=== PATIENT | male | born 1990 | race Hispanic/Latino ===

== ENCOUNTER 2018-07-16 21:30 | Observation (INO) | payer OTHER ==
[2018-07-16 21:36] VITALS: BMI 32.5
--- NOTE | 2018-07-16 22:36 | ED PDOC ---
Arrival/HPI - General Chief Complaint: Chest Pain Time Seen by Provider: 07/16/18 22:12 Historian: Patient - History of Present Illness Narrative History of Present Illness (Text): 07/16/18 22:32 28 m with hx asthma presents to the emergency department with chief complaint of center retrosternal chest pain, described as pressure, onset approx 10 days ago, no exacerbating or relieving factors, no prior hx of similiar symptoms. Patient also reports secondary complaint of left sided arm and leg numbness, ongoing for several days, constant feeling, patient also reports subjective weakness in the left arm and leg but not to the point of disability. Patient denies dyspnea, no headache, no facial weakness, no visual disturbance, no speech disturbance. Patient reports recent exacerbations of acid reflux for which he has been taking lots of antacid. Past Medical History - Provider Review Nursing Documentation Reviewed: Yes - Pulmonary Hx Asthma: Yes - Psychiatric Hx Substance Use: No - Anesthesia Hx Anesthesia: No Hx Anesthesia Reactions: No Hx Malignant Hyperthermia: No Family/Social History - Physician Review Nursing Documentation Reviewed: Yes Family/Social History: No Known Family HX Smoking Status: Light Smoker < 10 Cigarettes Daily Hx Alcohol Use: Yes Frequency of alcohol use: Socially Hx Substance Use: No Allergies/Home Meds Allergies/Adverse Reactions: Allergies No Known Allergies Allergy (Verified 07/16/18 21:36) Review of Systems - Physician Review All systems were reviewed & negative as marked: Yes - Review of Systems Eyes: absent: Vision Changes Cardiovascular: Chest Pain (pressure-like center retrosternal chest pain). absent: COLON Neurological: Other (left-sided arm and left leg numbness; subjective weakness in the left arm/leg; denies any facial weakness). absent: Headache, Speech Changes Physical Exam - Physical Exam Narrative Physical Exam (Text): Gen: VS reviewed, alert, well developed, well nourished, nontoxic, mild distress. ENT: normal pharynx. Eye: EOMI, PERRL. Neck: no JVD, supple, no adenopathy. CV: regular rate, regular rhythm, no rubs, no murmur, no gallops, S1, S2, pulses equal and strong. Pulm: no distress, clear to auscultation, no wheeze, no rhonchi, breath sounds equal, no rales. Abd: soft, nontender, no guarding, no rebound, no rigidity, normal bowel sounds. Ext: no edema. Skin: good color, no rash, no cyanosis. Psych: responds appropriately to questions, normal affect. Neuro: oriented x 3, CN2-12 intact grossly, motor intact, sensation intact, motor strength 5/5 however reports subjective weakness to left arm and leg, diminished sensation in left entire arm, left leg, left chest and left abdominal wall. Vital Signs Reviewed: Yes Vital Signs Temp Pulse Pulse Resp BP Pulse Ox 07/16/18 21:52 100 H 07/16/18 21:47 97.8 F 100 H 18 126/78 97 Temperature: Afebrile Blood Pressure: Normal Pulse: Regular Respiratory Rate: Normal Appearance: Positive for: Well-Appearing, Non-Toxic, Comfortable Pain Distress: None Mental Status: Positive for: Alert and Oriented X 3 Medical Decision Making ED Course and Treatment: 07/16/18 22:36 Impression: Patient seen for chest pain and left sided body numbness. will get CT of the head to rule out overt intracranial lesion. Will get CT dissection study as the patient is having chest pain with neurologic complaint. Plan: -- EKG -- Angiography Disection CT -- Labs -- Reassess and disposition Progress Notes: 07/17/18 04:[address] valentine to the hospitalist service. patient to be be admitted with the concern for diffuse paresthesias. - RAD Interpretation Narrative RAD Interpretations (Text): 07/17/2018 03:23 Chest CTA IMPRESSION: No evidence of acute abdominal or pelvic pathology. Dictator: Jeffrey Castro MD - EKG Interpretation EKG Interpretation (Text): 07/16/18 22:59 2142: sinus tach at 102 bpm, nml qrs, nml axis, no acute sttw abn Interpreted by ED Physician: Yes Disposition/Present on Arrival - Present on Arrival Any Indicators Present on Arrival: No History of DVT/PE: No History of Uncontrolled Diabetes: No Urinary Catheter: No History of Decub. Ulcer: No History Surgical Site Infection Following: None - Disposition Have Diagnosis and Disposition been Completed?: Yes Diagnosis: Chest pain, Paresthesia Disposition: HOSPITALIZED Disposition Time: 04:47 Patient Plan: Observation Condition: STABLE Discharge Instructions (ExitCare): Chest Pain (ED) Forms: [employer] (Kyrgyz)
[2018-07-16 23:30] LABS: INR 1.03; PARTIAL THROMBOPLASTIN TIME 33.9 Seconds (25.1-36.5); PROTHROMBIN TIME 11.7 SECONDS (9.4-12.5)
[2018-07-16 23:31] LABS: BASO # 0.03 K/mm3 (0.0-2.0); BASO % 0.2 % (0.0-3.0); EOS # 0.3 (0.0-0.7); EOS % 2.4 % (1.5-5.0); GRAN # 8.02 (1.4-6.5); GRAN % 58.9 % (50.0-68.0); HEMOGLOBIN 14.2 g/dL (14.0-18.0); LYMPH # 3.7 (1.2-3.4); LYMPH % 27.3 % (22.0-35.0); MEAN CELL VOLUME 89.4 fl (80.0-105.0); MEAN CORPUSCULAR HEMOGLOBIN 29.5 pg (25.0-35.0); MONO # 1.5 (0.1-0.6); MONO % 11.2 % (1.0-6.0); RBC 4.81 10^6/uL (3.5-6.1); WHITE BLOOD COUNT 13.6 10^3/uL (4.5-11.0)
[2018-07-16 23:41] LABS: ALB/GLOB RATIO 1.5 (1.1-1.8); ALBUMIN 4.5 g/dL (3.0-4.8); ALT/SGPT 43 U/L (7-56); AST/SGOT 35 U/L (17-59); BLOOD UREA NITROGEN 15 mg/dL (7-21); CALCIUM 9.3 mg/dL (8.4-10.5); GFR NON-AFRICAN AMERICAN > 60; HDL CHOLESTEROL 39 mg/dL (29-60)
[2018-07-16 23:53] LABS: LDL CHOLESTEROL 116 mg/dL (0-129)
[2018-07-17 00:02] LABS: TROPONIN I < 0.01 ng/mL
[2018-07-17 00:08] LABS: BARBITURATES, UR NEGATIVE (NEGATIVE); BENZODIAZEPINES, UR NEGATIVE (NEGATIVE); OPIATES, UR NEGATIVE (NEGATIVE); PHENCYCLIDINE, UR NEGATIVE (NEGATIVE)
[2018-07-17] MEDS ORDERED: DiphenhydrAMINE 50 mg/ml Inj IVP STA (01:33)
--- NOTE | 2018-07-17 05:42 | CP.PCM.HP ---
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 Patient reported symptoms have been on going for the past week. He denies any worsening w/ exertion; describes chset pain as located mid/substernal pressure like w/o radiation into the neck. He does report associate dnumbness/tingling of the LUE/ LLE and does report an increase in heart burn type symptoms. Patient reports hes been using alot of tums to help w/ his heart burn. PMD: Denies PMH: Asthma dialy inhaler use PSH: Denies Rx: ProAir Soc: No EtOH/ /4 PPD x 15 years/ No illicit Drug Use Fam Hx: Mother good health, Dad good health All: NKDA Present on Admission - Present on Admission Any Indicators Present on Admission: No Review of Systems - Review of Systems All systems: reviewed and no additional remarkable complaints except Review of Systems: as per HPI Past Patient History - Past Social History Smoking Status: Light Smoker < 10 Cigarettes Daily - PULMONARY Hx Asthma: Yes - PSYCHIATRIC Hx Substance Use: No - SURGICAL HISTORY Hx Surgeries: No - ANESTHESIA Hx Anesthesia: No Hx Anesthesia Reactions: No Hx Malignant Hyperthermia: No Meds Allergies/Adverse Reactions: Allergies Allergy/AdvReac Type Severity Reaction Status Date / Time No Known Allergies Allergy Verified 07/16/18 21:36 Physical Exam - Constitutional Appears: Well, Non-toxic, No Acute Distress - Head Exam Head Exam: ATRAUMATIC, NORMOCEPHALIC - Eye Exam Eye Exam: EOMI, Normal appearance, PERRL - ENT Exam ENT Exam: Mucous Membranes Moist - Respiratory Exam Respiratory Exam: Clear to Auscultation Bilateral, Wheezes, NORMAL BREATHING PATTERN - Cardiovascular Exam Cardiovascular Exam: RRR, +S1, +S2. absent: Tachycardia - GI/Abdominal Exam GI & Abdominal Exam: Normal Bowel Sounds, Soft. absent: Tenderness - Extremities Exam Extremities exam: Positive for: pedal pulses present (2+ BL). Negative for: tenderness - Neurological Exam Neurological exam: Alert, CN II-XII Intact, Oriented x3 Additional comments: RUE and LLE strength 5/5 BL ; no relative weakness All UE and LE sensory gooden intact w/ no deficit Finger to nose test intact; no deficit appreciate - Psychiatric Exam Psychiatric exam: Normal Affect, Normal Mood - Skin Skin Exam: Dry, Intact, Normal Color, Warm Results - Vital Signs Recent Vital Signs: Last Vital Signs Temp 97.7 F 07/17/18 02:20 Pulse 87 07/17/18 02:20 Resp 18 07/17/18 02:20 BP 116/67 07/17/18 02:20 Pulse Ox 96 07/17/18 02:20 - Labs Result Diagrams: 07/16/18 22:59 07/16/18 22:59 Labs: Laboratory Results - last 24 hr 07/16/18 07/16/18 07/16/18 22:59 22:59 22:59 WBC 13.6 H RBC 4.81 Hgb 14.2 Hct 43.0 MCV 89.4 MCH 29.5 MCHC 33.0 RDW 13.0 Plt Count 341 MPV 9.0 Gran % 58.9 Lymph % (Auto) 27.3 [place] % (Auto) 11.2 H Eos % (Auto) 2.4 Baso % (Auto) 0.2 Gran # 8.02 H Lymph # (Auto) 3.7 H [place] # (Auto) 1.5 H Eos # (Auto) 0.3 Baso # (Auto) 0.03 ESR 5 PT 11.7 INR 1.03 APTT 33.9 Sodium 143 Potassium 3.8 Chloride 105 Carbon Dioxide 28 Anion Gap 13 BUN 15 Creatinine 1.1 Est GFR ( Amer) > 60 Est GFR (Non-Af Amer) > 60 Random Glucose 89 Calcium 9.3 Magnesium 2.0 Total Bilirubin 0.4 AST 35 ALT 43 Alkaline Phosphatase 63 Troponin I < 0.01 Total Protein 7.4 Albumin 4.5 Globulin 2.9 Albumin/Globulin Ratio 1.5 Triglycerides 251 H Cholesterol 188 LDL Cholesterol Direct 116 HDL Cholesterol 39 Urine Opiates Screen Urine Methadone Screen Ur Barbiturates Screen Ur Phencyclidine Scrn Ur Amphetamines Screen U Benzodiazepines Scrn U Oth Cocaine Metabols U Cannabinoids Screen 07/16/18 22:59 WBC RBC Hgb Hct MCV MCH MCHC RDW Plt Count MPV Gran % Lymph % (Auto) [place] % (Auto) Eos % (Auto) Baso % (Auto) Gran # Lymph # (Auto) [place] # (Auto) Eos # (Auto) Baso # (Auto) ESR PT INR APTT Sodium Potassium Chloride Carbon Dioxide Anion Gap BUN Creatinine Est GFR ( Amer) Est GFR (Non-Af Amer) Random Glucose Calcium Magnesium Total Bilirubin AST ALT Alkaline Phosphatase Troponin I Total Protein Albumin Globulin Albumin/Globulin Ratio Triglycerides Cholesterol LDL Cholesterol Direct HDL Cholesterol Urine Opiates Screen Negative Urine Methadone Screen Negative Ur Barbiturates Screen Negative Ur Phencyclidine Scrn Negative Ur Amphetamines Screen Negative U Benzodiazepines Scrn Negative U Oth Cocaine Metabols Negative U Cannabinoids Screen Negative Assessment & Plan - Assessment and Plan (Free Text) Assessment: 28M w/ a PMH of asthma presented to [facility] on 07/17 w/ c/o Mid sternal chest pain w/ associated left sided paresthesias. Admitted for ACS r/o and evaluation of parasthesias. Plan: ACS R/o First trop negative; EKG no ischemic change Follow trop; Repeat EKG pending C/w ASA 81 QD A1C pending Lipid panel - hyper triglyceridemia Can Start Lipitor Cardiology Consulted appreciate reccs GERD Protonix 40 IVP QD Paresthesias B12, Folate, Heavy Metal Panel Neurology Consulted, Appreciate reccs Asthma Duonebs Q6/Q4 Patient was seen, examined, Discussed w/ attending Dr. 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 <Mar Marin - Last Filed: 07/17/18 19:58> Results - Vital Signs Recent Vital Signs: Last Vital Signs Temp 98.6 F 07/17/18 17:55 Pulse 94 H 07/17/18 18:00 Resp 20 07/17/18 17:55 BP 120/66 07/17/18 17:55 Pulse Ox 99 07/17/18 08:00 - Labs Result Diagrams: 07/17/18 09:30 07/17/18 09:30 Labs: Laboratory Results - last 24 hr 07/16/18 07/16/18 07/16/18 22:59 22:59 22:59 WBC 13.6 H RBC 4.81 Hgb 14.2 Hct 43.0 MCV 89.4 MCH 29.5 MCHC 33.0 RDW 13.0 Plt Count 341 MPV 9.0 Gran % 58.9 Lymph % (Auto) 27.3 [place] % (Auto) 11.2 H Eos % (Auto) 2.4 Baso % (Auto) 0.2 Gran # 8.02 H Lymph # (Auto) 3.7 H [place] # (Auto) 1.5 H Eos # (Auto) 0.3 Baso # (Auto) 0.03 ESR 5 PT 11.7 INR 1.03 APTT 33.9 Sodium 143 Potassium 3.8 Chloride 105 Carbon Dioxide 28 Anion Gap 13 BUN 15 Creatinine 1.1 Est GFR ( Amer) > 60 Est GFR (Non-Af Amer) > 60 Random Glucose 89 Hemoglobin A1c Calcium 9.3 Magnesium 2.0 Total Bilirubin 0.4 AST 35 ALT 43 Alkaline Phosphatase 63 Troponin I < 0.01 Total Protein 7.4 Albumin 4.5 Globulin 2.9 Albumin/Globulin Ratio 1.5 Triglycerides 251 H Cholesterol 188 LDL Cholesterol Direct 116 HDL Cholesterol 39 Vitamin B12 Folate TSH 3rd Generation Urine Opiates Screen Urine Methadone Screen Ur Barbiturates Screen Ur Phencyclidine Scrn Ur Amphetamines Screen U Benzodiazepines Scrn U Oth Cocaine Metabols U Cannabinoids Screen 07/16/18 07/17/18 07/17/18 22:59 09:30 09:30 WBC RBC Hgb Hct MCV MCH MCHC RDW Plt Count MPV Gran % Lymph % (Auto) [place] % (Auto) Eos % (Auto) Baso % (Auto) Gran # Lymph # (Auto) [place] # (Auto) Eos # (Auto) Baso # (Auto) ESR PT INR APTT Sodium 140 Potassium 4.0 Chloride 107 Carbon Dioxide 27 Anion Gap 10 BUN 15 Creatinine 1.0 Est GFR ( Amer) > 60 Est GFR (Non-Af Amer) > 60 Random Glucose 115 H Hemoglobin A1c 5.7 Calcium 9.0 Magnesium Total Bilirubin 0.3 AST 30 ALT 41 Alkaline Phosphatase 61 Troponin I < 0.01 Total Protein 6.8 Albumin 4.0 Globulin 2.7 Albumin/Globulin Ratio 1.5 Triglycerides Cholesterol LDL Cholesterol Direct HDL Cholesterol Vitamin B12 413 Folate 8.6 TSH 3rd Generation Urine Opiates Screen Negative Urine Methadone Screen Negative Ur Barbiturates Screen Negative Ur Phencyclidine Scrn Negative Ur Amphetamines Screen Negative U Benzodiazepines Scrn Negative U Oth Cocaine Metabols Negative U Cannabinoids Screen Negative 07/17/18 07/17/18 07/17/18 09:30 09:30 15:41 WBC 8.0 D RBC 4.48 Hgb 13.7 L Hct 40.5 L MCV 90.4 MCH 30.6 MCHC 33.8 RDW 13.2 Plt Count 316 MPV 8.9 Gran % 52.4 Lymph % (Auto) 33.3 [place] % (Auto) 9.9 H Eos % (Auto) 4.2 Baso % (Auto) 0.2 Gran # 4.19 Lymph # (Auto) 2.7 [place] # (Auto) 0.8 H Eos # (Auto) 0.3 Baso # (Auto) 0.02 ESR PT INR APTT Sodium Potassium Chloride Carbon Dioxide Anion Gap BUN Creatinine Est GFR ( Amer) Est GFR (Non-Af Amer) Random Glucose Hemoglobin A1c Calcium Magnesium Total Bilirubin AST ALT Alkaline Phosphatase Troponin I < 0.01 Total Protein Albumin Globulin Albumin/Globulin Ratio Triglycerides Cholesterol LDL Cholesterol Direct HDL Cholesterol Vitamin B12 Folate TSH 3rd Generation 1.46 Urine Opiates Screen Urine Methadone Screen Ur Barbiturates Screen Ur Phencyclidine Scrn Ur Amphetamines Screen U Benzodiazepines Scrn U Oth Cocaine Metabols U Cannabinoids Screen Attending/Attestation - Attestation I have personally seen and examined this patient.: Yes I have fully participated in the care of the patient.: Yes I have reviewed all pertinent clinical information: Yes
[2018-07-17] MEDS ORDERED: Albuterol-Ipratrop 3 mg / 0.5 (3 ml) UD IH PRN (06:44)
[2018-07-17] MEDS ORDERED: Albuterol-Ipratrop 3 mg / 0.5 (3 ml) UD IH SCH (08:00)
[2018-07-17 08:27] VITALS: O2SAT 99
[2018-07-17 09:52] LABS: BASO # 0.02 K/mm3 (0.0-2.0); BASO % 0.2 % (0.0-3.0); EOS # 0.3 (0.0-0.7); EOS % 4.2 % (1.5-5.0); GRAN # 4.19 (1.4-6.5); GRAN % 52.4 % (50.0-68.0); HEMOGLOBIN 13.7 g/dL (14.0-18.0); LYMPH # 2.7 (1.2-3.4); LYMPH % 33.3 % (22.0-35.0); MEAN CELL VOLUME 90.4 fl (80.0-105.0); MEAN CORPUSCULAR HEMOGLOBIN 30.6 pg (25.0-35.0); MEAN CORPUSCULAR HGB CONC 33.8 g/dl (31.0-37.0); MEAN PLATELET VOLUME 8.9 fl (7.0-11.0); MONO # 0.8 (0.1-0.6); MONO % 9.9 % (1.0-6.0); RBC 4.48 10^6/uL (3.5-6.1); RED CELL DISTRIBUTION WIDTH 13.2 % (11.5-14.5)
[2018-07-17] MEDS: MethylPREDNISolone 40 mg Vial IVP SCH ×2 (09:53→21:15)
[2018-07-17 10:00] LABS: ALB/GLOB RATIO 1.5 (1.1-1.8); ALT/SGPT 41 U/L (7-56); AST/SGOT 30 U/L (17-59); BLOOD UREA NITROGEN 15 mg/dL (7-21); GFR NON-AFRICAN AMERICAN > 60
--- NOTE | 2018-07-17 10:02 | CT ---
Date of service: 07/17/2018 CT Dissection protocol Indication: dissection protocol, can wait for kidney function Technique: Contiguous axial images were obtained through the chest/abdomen/pelvis without and with intravenous contrast enhancement utilizing dissection protocol technique. Sagittal and coronal reconstructions were generated and reviewed. This CT exam was performed using 1 or more of the following dose reduction techniques: Automated exposure control, adjustment of the MAA and/or kV according to patient size, and/or use of iterative reconstruction technique. Radiation dose (DLP): 1929.99 MGy-cm. Contrast: 150 mL Omnipaque 350 IV Findings: Visualized portions of the inferior thyroid gland appear unremarkable. The mediastinal and hilar vascular structures appear within normal limits. The heart appears within normal limits of size. No evidence of thoracic aorta dissection or aneurysmal dilatation. No focal consolidation. No pleural effusion. No pneumothorax. No suspicious pulmonary nodules measuring greater than 5 mm. There is normal course and contour of the abdominal aorta and common iliac arteries. No evidence of aortic aneurysm or dissection. Small hiatal hernia/distal esophageal wall thickening. The liver appears within normal limits of size and morphology. The pancreas, spleen, adrenal glands, and gallbladder appear unremarkable. The kidneys enhance symmetrically without evidence of hydronephrosis or obstructing renal calculi. No bulky adenopathy identified The stomach is nondistended. Diverticulosis without CT evidence of acute diverticulitis. Visualized bowel loops appear within normal limits of caliber without evidence of obstruction. The appendix appears normal. No inflammatory changes are seen in the right lower quadrant to suggest acute appendicitis. No definite free air. The urinary bladder appears unremarkable. No significant pelvic free fluid is identified. Small bilateral fat containing inguinal hernias. No acute osseous abnormality is identified. Impression: No acute findings. Incidental findings as above. Preliminary impression was provided by [employer].
[2018-07-17 10:11] LABS: TROPONIN I < 0.01 ng/mL
[2018-07-17 12:50] VITALS: RESP 20
--- NOTE | 2018-07-17 14:41 | CP.PCM.CON ---
<Sudhir Tavera - Last Filed: 07/17/18 14:21> History of Present Illness - History of Present Illness History of Present Illness: Neurology Consultation (Dr. Mckenzie's Service) CC: Paresthesia of LUE/LLE HPI: Mr. 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 Neurology was consulted for paresthesia. Patient reports that his parethesia's started 11 days ago with the onset of his chest pressure symptoms. He endorses that the parethesia's are intermittent but only present when he is having his chest pressure. He reports that there is no pattern to his paresthesia other than they are always on his LUE and LLE. He reports that the whole limb is not involved but rather several isolated area's of each extremity become involved. These area's, however, are not in consistent locations with each episode. 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 Currently, patient denies any complaints and 12 point ROS is unremarkable. PMH: As stated above PSH: Denies Family History: Unaware of this as he is adopted Social History: Current smoker of 1/4ppd; Denies any alcohol or illicit drug use; Occasionally uses CBD oil trough e-cigarette Allergies: NKDA Home Medications: ProAir Review of Systems - Review of Systems Review of Systems: As stated in HPI, otherwise negative Past Patient History - Past Social History Smoking Status: Light Smoker < 10 Cigarettes Daily - PULMONARY Hx Asthma: Yes - PSYCHIATRIC Hx Substance Use: No - SURGICAL HISTORY Hx Surgeries: No - ANESTHESIA Hx Anesthesia: No Hx Anesthesia Reactions: No Hx Malignant Hyperthermia: No Meds Allergies/Adverse Reactions: Allergies Allergy/AdvReac Type Severity Reaction Status Date / Time No Known Allergies Allergy Verified 07/16/18 21:36 - Medications Medications: Current Medications Albuterol/Ipratropium (Duoneb 3 Mg/0.5 Mg (3 Ml) Ud) 3 ml IH Q2H PRN PRN Reason: Shortness of Breath Albuterol/Ipratropium (Duoneb 3 Mg/0.5 Mg (3 Ml) Ud) 3 ml [facility] [id number] [facility] Aspirin (Aspirin Chewable) 81 mg PO DAILY [facility] Last Admin: 07/17/18 09:54 Dose: 81 mg Atorvastatin Calcium (Lipitor) 20 mg PO DIN [facility] Methylprednisolone (Solu-Medrol) 40 mg IVP Q12 [facility] Last Admin: 07/17/18 09:53 Dose: 40 mg Nicotine (Nicoderm Cq) 1 patch TD DAILY [facility] Last Admin: 07/17/18 09:53 Dose: 1 patch Pantoprazole Sodium (Protonix Ec Tab) 40 mg PO 0600 [facility] Physical Exam - Constitutional Appears: Non-toxic, No Acute Distress - Head Exam Head Exam: ATRAUMATIC, NORMOCEPHALIC - Eye Exam Eye Exam: EOMI, Normal appearance, PERRL. absent: Conjunctival injection, Nystagmus, Periorbital swelling, Periorbital tenderness, Scleral icterus Pupil Exam: NORMAL ACCOMODATION, PERRL. absent: Fixed, Irregular, Miosis, Mydriatic, Unequal - ENT Exam ENT Exam: Mucous Membranes Moist, Normal Exam - Neck Exam Neck exam: Positive for: Full Rom, Normal Inspection. Negative for: Lymphadenopathy, Meningismus, Tenderness, Thyromegaly - Respiratory Exam Respiratory Exam: Clear to Auscultation Bilateral, NORMAL BREATHING PATTERN - Cardiovascular Exam Cardiovascular Exam: REGULAR RHYTHM - GI/Abdominal Exam GI & Abdominal Exam: Normal Bowel Sounds, Soft. absent: Tenderness - Extremities Exam Extremities exam: Positive for: full ROM, normal capillary refill, normal inspection, pedal pulses present - Neurological Exam Neurological exam: Alert, CN II-XII Intact, Normal Gait, Oriented x3, Reflexes Normal - Expanded Neurological Exam Expanded Patient oriented to: person, place, time Cranial nerves: EOM's Intact: Normal, Facial Palsey w/Forehead Movement: Normal, Facial Palsey w/o Forehead Movement: Normal, Facial Sensation: Normal, Tongue Deviation: Normal Ataxia: No Cerebellar Function: Finger to Nose: Normal, Heel to [place]: Normal Upper motor neuron: Pronator Drift: Normal Sensory exam: Lower Extremity 2 Point Discrimination: Normal, Lower Extremity Light Touch: Normal, Upper Extremity 2 Point Discrimination: Normal, Upper Extremity Light Touch: Normal Neuro motor strength exam: Left Upper Extremity: 5, Right Upper Extremity: 5, Left Lower Extremity: 5, Right Lower Extremity: 5 Coma Scale Eye Opening: SPONTANEOUS Coma Scale Motor Response: OBEYS COMMANDS Coma Scale Verbal: Oriented Coma Scale Total: 15 - Psychiatric Exam Psychiatric exam: Normal Affect, Normal Mood - Skin Skin Exam: Dry, Intact, Normal Color, Warm Results - Vital Signs Recent Vital Signs: Last Vital Signs Temp 97.7 F 07/17/18 12:50 Pulse 74 07/17/18 13:57 Resp 20 07/17/18 12:50 BP 125/66 07/17/18 12:50 Pulse Ox 99 07/17/18 08:00 - Labs Result Diagrams: 07/17/18 09:30 07/17/18 09:30 Labs: Laboratory Results - last 24 hr 07/16/18 07/16/18 07/16/18 22:59 22:59 22:59 WBC 13.6 H RBC 4.81 Hgb 14.2 Hct 43.0 MCV 89.4 MCH 29.5 MCHC 33.0 RDW 13.0 Plt Count 341 MPV 9.0 Gran % 58.9 Lymph % (Auto) 27.3 [place] % (Auto) 11.2 H Eos % (Auto) 2.4 Baso % (Auto) 0.2 Gran # 8.02 H Lymph # (Auto) 3.7 H [place] # (Auto) 1.5 H Eos # (Auto) 0.3 Baso # (Auto) 0.03 ESR 5 PT 11.7 INR 1.03 APTT 33.9 Sodium 143 Potassium 3.8 Chloride 105 Carbon Dioxide 28 Anion Gap 13 BUN 15 Creatinine 1.1 Est GFR ( Amer) > 60 Est GFR (Non-Af Amer) > 60 Random Glucose 89 Calcium 9.3 Magnesium 2.0 Total Bilirubin 0.4 AST 35 ALT 43 Alkaline Phosphatase 63 Troponin I < 0.01 Total Protein 7.4 Albumin 4.5 Globulin 2.9 Albumin/Globulin Ratio 1.5 Triglycerides 251 H Cholesterol 188 LDL Cholesterol Direct 116 HDL Cholesterol 39 Urine Opiates Screen Urine Methadone Screen Ur Barbiturates Screen Ur Phencyclidine Scrn Ur Amphetamines Screen U Benzodiazepines Scrn U Oth Cocaine Metabols U Cannabinoids Screen 07/16/18 07/17/18 07/17/18 22:59 09:30 09:30 WBC 8.0 D RBC 4.48 Hgb 13.7 L Hct 40.5 L MCV 90.4 MCH 30.6 MCHC 33.8 RDW 13.2 Plt Count 316 MPV 8.9 Gran % 52.4 Lymph % (Auto) 33.3 [place] % (Auto) 9.9 H Eos % (Auto) 4.2 Baso % (Auto) 0.2 Gran # 4.19 Lymph # (Auto) 2.7 [place] # (Auto) 0.8 H Eos # (Auto) 0.3 Baso # (Auto) 0.02 ESR PT INR APTT Sodium 140 Potassium 4.0 Chloride 107 Carbon Dioxide 27 Anion Gap 10 BUN 15 Creatinine 1.0 Est GFR ( Amer) > 60 Est GFR (Non-Af Amer) > 60 Random Glucose 115 H Calcium 9.0 Magnesium Total Bilirubin 0.3 AST 30 ALT 41 Alkaline Phosphatase 61 Troponin I < 0.01 Total Protein 6.8 Albumin 4.0 Globulin 2.7 Albumin/Globulin Ratio 1.5 Triglycerides Cholesterol LDL Cholesterol Direct HDL Cholesterol Urine Opiates Screen Negative Urine Methadone Screen Negative Ur Barbiturates Screen Negative Ur Phencyclidine Scrn Negative Ur Amphetamines Screen Negative U Benzodiazepines Scrn Negative U Oth Cocaine Metabols Negative U Cannabinoids Screen Negative Assessment & Plan - Assessment and Plan (Free Text) Assessment: 28 year old male with a past medical history significant for asthma and 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 Neurology was consulted for paresthesia. Plan: -CTA Dissection was unremarkable for any vascular abnormality of the thoracic aorta -MRI Brain without contrast to rule out brainstem pathology pending -CT Head without contrast pending -B12, Folate and Heavy Metal panel pending -Continue cardiac workup as per Cardiology and Primary teams -Further recommendations as per Dr. Mckenzie Patient seen and case discussed with attending, Dr. Mckenzie. Sudhir Tavera PGY2 - Date & Time Date: 07/17/18 Time: 14:43 <August Mckenzie - Last Filed: 07/19/18 13:51> Results - Vital Signs Recent Vital Signs: Last Vital Signs Temp 98.6 F 07/17/18 17:55 Pulse 94 H 07/17/18 18:00 Resp 20 07/17/18 17:55 BP 120/66 07/17/18 17:55 Pulse Ox 99 07/17/18 08:00 - Labs Result Diagrams: 07/17/18 09:30 07/17/18 09:30 Attending/Attestation - Attestation I have personally seen and examined this patient.: Yes I have fully participated in the care of the patient.: Yes I have reviewed all pertinent clinical information: Yes Notes (Text): I agree with the assessment and plan. Likely paresthesias for multifactorial reasons. Will continue work-up as outlined.
--- NOTE | 2018-07-17 15:58 | CARD ---
APPROVED REPORT Date of service: 07/17/2018 EXAM: Two-dimensional and M-mode echocardiogram with Doppler and color Doppler. INDICATION Chest Pain 2D DIMENSIONS Left Atrium (2D)2.7 (1.6-4.0cm)IVSd1.2 (0.7-1.1cm) LVDd4.6 (3.9-5.9cm)PWd1.1 (0.7-1.1cm) LVDs3.3 (2.5-4.0cm)FS (%) 28.5 % LVEF (%)55.0 (>50%) M-Mode DIMENSIONS Aortic Root3.10 (2.2-3.7cm)Aortic Cusp Exc.2.10 (1.5-2.0cm) Aortic Valve AoV Peak Jeirdvvf656.0cm/Luis Peak GR.7mmHg Mitral Valve MV E Dlezpkdg89.5cm/sMV A Vsotlvrg48.2cm/sE/A ratio1.2 TDI Lateral E' Peak V14.30cm/sMedial E' Peak V10.50cm/sE/Lateral E'5.3 E/Medial E'7.3 Pulmonary Valve PV Peak Wpbtoyig29.9cm/sPV Peak Grad.2mmHg Tricuspid Valve TR Peak Ugkshizh723pj/sRAP [id number] Peak Gr.17mmHg [id number] LEFT VENTRICLE The left ventricle is normal size. There is normal left ventricular wall thickness. The left ventricular function is normal. The left ventricular ejection fraction is within the normal range. There is normal LV segmental wall motion. The left ventricular diastolic function is normal. RIGHT VENTRICLE The right ventricle is normal size. There is normal right ventricular wall thickness. The right ventricular systolic function is normal. ATRIA The left atrium size is normal. The right atrium size is normal. AORTIC VALVE The aortic valve is normal in structure. No aortic regurgitation is present. There is no aortic valvular stenosis. MITRAL VALVE The mitral valve is normal in structure. There is no mitral valve regurgitation noted. There is no mitral valve stenosis. TRICUSPID VALVE The tricuspid valve is normal in structure. There is trace tricuspid regurgitation. PULMONIC VALVE The pulmonary valve is normal in structure. There is trace pulmonic valvular regurgitation. GREAT VESSELS The aortic root is normal in size. The IVC is normal in size and collapses >50% with inspiration. <Conclusion> There is normal left ventricular wall thickness. The left ventricular function is normal. The left ventricular ejection fraction is within the normal range. There is normal LV segmental wall motion. The left ventricular diastolic function is normal.
--- NOTE | 2018-07-17 17:09 | CT ---
Date of service: 07/17/2018 PROCEDURE: CT HEAD WITHOUT CONTRAST. HISTORY: Paresthesias. COMPARISON: No prior study available for comparison TECHNIQUE: Axial computed tomography images were obtained through the head/brain without intravenous contrast. Radiation dose: Total exam DLP = 978.99 mGy-cm. This CT exam was performed using one or more of the following dose reduction techniques: Automated exposure control, adjustment of the mA and/or kV according to patient size, and/or use of iterative reconstruction technique. FINDINGS: HEMORRHAGE: No intracranial hemorrhage. BRAIN: No mass effect or edema. No atrophy or chronic microvascular ischemic changes. VENTRICLES: No obstructive hydrocephalus. Note however the septum pellucidum is not well delineated. Findings could be due to septum cavum pellucidum however absence of the septum pellucidum not excluded. Clinical correlation recommended.. CALVARIUM: Calvarium intact with no evidence of acute fractures or suspicious lytic/blastic lesions. PARANASAL SINUSES: Mild mucosal thickening seen within a few ethmoid air cells extending superiorly into the inferior margin of the frontal sinus. There is also mild mucosal thickening in the sphenoid sinus... MASTOID AIR CELLS: Mastoid air complexes well-developed and currently well-aerated.. OTHER FINDINGS: Visualized orbits and contents unremarkable. IMPRESSION: No acute intracranial hemorrhage. Questionable septum cavum pellucidum of versus absence of the septum pellucidum..
--- NOTE | 2018-07-17 17:13 | MRI ---
Date of service: 07/17/2018 PROCEDURE: MRI BRAIN WITHOUT CONTRAST HISTORY: Parathesias and history of Pastor's palsy. COMPARISON: Comparison made with prior CT scan brain dated 07/17/2018.. TECHNIQUE: Multiplanar, multisequence MR images of the brain were obtained without intravenous contrast enhancement. FINDINGS: Exam is slightly limited by motion artifact HEMORRHAGE: No acute parenchymal, subarachnoid or extra-axial. No evidence of hemosiderin deposition identified on gradient echo weighted sequence. DWI: No evidence of an acute or early subacute infarction.. No focal areas of abnormal signal seen within the substance of the brain. No obvious parenchymal nor extra-axial masses or collections identified on this noncontrast study. BRAIN PARENCHYMA: No mass effect or edema. No atrophy or chronic microvascular ischemic changes. VENTRICLES: No obstructive hydrocephalus.. Note again made of what could represent either a septum cavum pellucidum with very thin splayed leaves of the septum versus the possibility of absence of the septum pellucidum. CRANIUM: Unremarkable. ORBITS: Orbits and contents appear grossly unremarkable. PARANASAL SINUSES/MASTOIDS: There is mild mucosal thickening within all the paranasal sinuses. No fluid levels seen to suggest acute sinusitis. VASCULAR SYSTEM: Visualized major vascular flow voids at skull base patent.. OTHER FINDINGS: None. IMPRESSION: Slightly limited motion degraded study. No evidence of acute hemorrhage or infarct. Questionable septum cavum pellucidum versus absence of the septum pellucidum.
[2018-07-17] MEDS ORDERED: Influenza Vaccine 60 mcg/0.5 mL SYR (4YR UP) IM ONE (17:23)
[2018-07-17] MEDS ORDERED: Pneumococcal 23-Valent Vaccine IM ONE (17:23)
[2018-07-17 17:35] LABS: FOLATE 8.6 ng/mL
[2018-07-17 17:56] VITALS: BP 120/66; TEMP 98.6
[2018-07-17 18:07] VITALS: PULSE 94
--- NOTE | 2018-07-17 18:19 | CON ---
DATE OF CONSULTATION: 07/17/2018 REASON FOR CONSULTATION: Chest pain. HISTORY OF PRESENT ILLNESS: The patient is a 28-year-old male who is a smoker, has history of bronchial asthma, uses an inhaler every few days in the morning as one use. The patient presented because of chest discomfort while he was at home. He reports precordial discomfort radiating to the left side of the chest. The patient denies any associated diaphoresis and denies wheezing at that time. The patient is unaware of any prior cardiac history. PAST MEDICAL HISTORY: Bronchial asthma. SOCIAL HISTORY: The patient is a smoker. 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 CURRENT MEDICATIONS: Aspirin 81 mg once a day, albuterol inhaler, Nicoderm patch, Solu-Medrol 40 mg intravenous every 12 hours, Protonix 1 g p.o. once a day. REVIEW OF SYSTEMS: No nausea or vomiting. No fever or chills. PHYSICAL EXAMINATION: GENERAL: The patient is a young middle-aged male who does not appear to be in any distress. VITAL SIGNS: Blood pressure 121/72, heart rate 100, temperature 98, respirations 19. HEENT: Normocephalic. CHEST: Clear. HEART: S1 and S2 regular. ABDOMEN: Soft. EXTREMITIES: No edema. LABORATORY DATA: Today's hemoglobin and hematocrit 15.7 and 40.5, white count and platelet count are within normal limits. SMA-7 today is within normal limits except for glucose of 115. Two sets of troponins are negative. Triglycerides elevated to 151. The rest of lipid profile is within normal limits. PT/PTT and INR is within normal limits. Urine drug screen is within normal limits. EKG revealed sinus tachycardia at rate of 102. Angiography with dissection protocol revealed no acute findings. ASSESSMENT: 1. Atypical chest pain, myocardial function is ruled out. 2. History of bronchial asthma. 3. Mild sinus tachycardia. 4. Mild hypertriglyceridemia. RECOMMENDATIONS: Continue current aspirin, albuterol, Solu-Medrol, nicotine patch. Start Lipitor at 20 mg orally once a day. Obtain an echocardiogram. Case was discussed with the patient and with the medical team. Echo study does not point to underlying coronary artery disease. The patient can be discharged on medical management. Follow up with his primary physician for an outpatient treadmill stress test. Jacinto Lechuga MD
--- NOTE | 2018-07-17 20:19 | CARD ---
APPROVED REPORT Date of service: 07/16/2018 EKG Measurement Heart [id number] <Conclusion> Sinus tachycardia Otherwise normal ECG
[2018-07-18] MEDS ORDERED: Pantoprazole 40 mg EC Tab PO SCH (06:00)
== END 2018-07-17 22:45 | disposition left against medical advice (07) ==
LOC: ED 21:30 → ERH 07-17 04:47 → 2RNO 07-17 08:33
PROVIDERS: ADMIT Hospitalist; ATTEND Internal Medicine
DX: R07.89 Other chest pain (principal); J45.909 Unspecified asthma, uncomplicated; F17.210 Nicotine dependence, cigarettes, uncomplicated; R20.2 Paresthesia of skin; K21.9 Gastro-esophageal reflux disease without esophagitis
CPT/HCPCS: 36415; 70450; 70551; 71275; 74175; 80053; 80061; 80324; 80345; 80346; 80349; 80353; 80358; 80361; 82175; 82607; 82746; 83036; 83655; 83735; 83825; 83992; 84443; 84484; 85025; 85610; 85651; 85730; 93005; 93306; 96374; 96375; 96376; 99285; C9113; G0378; J1200; J2920; Q9967